=== PATIENT | male | born 1955 | race Two or more races ===

== ENCOUNTER → 2017-08-06 | Outpatient (CLI) | payer OTHER | LOC: FIMAGING 13:36 | PROVIDERS: ATTEND Orthopaedic Surgery | DX: Z01.818 Encounter for other preprocedural examination (principal); M17.11 Unilateral primary osteoarthritis, right knee ==

== ENCOUNTER 2017-08-14 10:52 | Observation (INO) | payer OTHER ==
--- NOTE | 2017-08-14 07:03 | PDHPUP ---
History & Physical Update H&P update statement: This history and physical update is based on an assessment of the patient which was completed after admission or registration (within 24 hours), but prior to the surgery/procedure. H&P update: H&P reviewed & patient examined, no change in patient's condition since H&P completed
[~2017-08-14 10:52] MED LIST: ROPIVACAINE 0.2% 80 MG, EPINEPHrine 0.2 MG, KETOROLAC TROMETHAMINE 30 MG in SYRINGE 0 ML IU ONE; TRANEXAMIC ACID 3,000 MG in NS (SYRINGE) 50 ML IRR ONE; VANCOMYCIN 1 GM VIAL ONE
[2017-08-14] MEDS ORDERED: ACETAMINOPHEN 325 MG TAB PO ONE (11:52)
[2017-08-14] MEDS ORDERED: DEXAMETHASONE 4 MG/ML VIAL IVP ONE (11:52)
[2017-08-14] MEDS ORDERED: FAMOTIDINE 20 MG TAB PO ONE (11:52)
[2017-08-14] MEDS ORDERED: ceFAZolin 2 GM/DEXTROSE 100 ML IV ONE (11:52)
[2017-08-14] MEDS ORDERED: LIDOCAINE 1% 2 ML INJ ID PRN (11:53)
[2017-08-14] MEDS ORDERED: LR 1,000 ML IV ONE (11:55)
--- NOTE | 2017-08-14 13:04 | PDANEPAE ---
ANE Past Medical History - Cardiovascular History Hx Hypertension: Yes Hx Arrhythmias: No Hx Chest Pain: No Hx Coronary Artery / Peripheral Vascular Disease: No Hx CHF / Valvular Disease: No Hx Palpitations: No - Pulmonary History Hx COPD: No Hx Asthma/Reactive Airway Disease: No Hx Recent Upper Respiratory Infection: Yes Hx Oxygen in Use at Home: No Hx Sleep Apnea: Yes Sleep Apnea Screening Result - Last Documented: Positive Pulmonary History Comment: LEV USES C-PAP,INSTRUCTED TO BRING DOS. URI 02/2017 - Neurologic History Hx Cerebrovascular Accident: No Hx Seizures: No Hx Dementia: No - Endocrine History Hx Diabetes: No - Renal History Hx Renal Disorders: Yes Renal History Comment: BPH - Liver History Hx Hepatic Disorders: No - Neurological & Psychiatric Hx Hx Neurological and Psychiatric Disorders: Yes Neurological / Psychiatric History Comment: ANXIETY. PANIC DISORDER - Cancer History Hx Cancer: No - Congenital Disorder History Hx Congenital Disorders: No - GI History Hx Gastrointestinal Disorders: No - Other Health History Other Health History: OSTEOARTHRITIS. SIGNS OF GLAUCOMA. CHRONIC SINUSITUS. ED. INSOMNIA - Chronic Pain History Chronic Pain: Yes (RT KNEE) - Surgical History Prior Surgeries: LT TOTAL KNEE 06/2015. APPY. TONSILLECTOMY. LORRAINE ING HERNIA. VENTRAL HERNIA. VASECTOMY REVERSAL ANE Review of Systems Review of Systems: - Exercise capacity METS (RN): 4 METS ANE Patient History - Allergies Allergies/Adverse Reactions: codeine Allergy (Verified 07/14/17 11:21) INCREASED ANXIETY lisinopril Allergy (Verified 07/14/17 11:21) DEVELOPS COUGH - Home Medications Home Medications: Ambien HS 07/14/17 [Last Taken 08/13/17 21:00] Fluocinolone 0.01% PRN 07/14/17 [Last Taken 08/07/17] Fluticasone Nasal PRN 07/14/17 [Last Taken 08/07/17] Herbals/Supplements -Info Only DAILY 07/14/17 [Last Taken 08/07/17] Losartan Potassium HS 07/14/17 [Last Taken 08/13/17 21:00] - NPO status NPO Since - Liquids (Date): 08/14/17 NPO Since - Liquids (Time): 09:30 NPO Since - Solids (Date): 08/13/17 NPO Since - Solids (Time): 21:45 - Smoking Hx Smoking Status: Former smoker ANE Labs/Vital Signs - Vital Signs Blood Pressure: 138/96 Heart Rate: 71 Respiratory Rate: 16 O2 Sat (%): 96 Height: 180.34 cm Weight: 108.862 kg ANE Physical Exam - Airway Neck exam: FROM Mallampati Score: Class 2 Mouth exam: normal dental/mouth exam - Pulmonary Pulmonary: no respiratory distress - Cardiovascular Cardiovascular: regular rate and rhythym - ASA Status ASA Status: III ANE Anesthesia Plan Anesthesia Plan: general endotracheal anesthesia, spinal Regional Anesthesia: adductor canal FNB
[2017-08-14] MEDS ORDERED: MIDAZOLAM 2 MG/2 ML VIAL ONE (13:14)
[2017-08-14] MEDS ORDERED: fentaNYL 100 MCG/2 ML INJ ONE (13:14)
[2017-08-14] MEDS ORDERED: PROPOFOL/EMULSION 500 MG/50 ML BOTTLE IV ONE (13:15)
[2017-08-14] MEDS ORDERED: fentaNYL 250 MCG/5 ML INJ ONE (13:26)
[2017-08-14] MEDS ORDERED: ROCURONIUM 50 MG/5 ML VIAL ONE (13:26)
[2017-08-14] MEDS ORDERED: METOCLOPRAMIDE 10 MG/2 ML VIAL ONE (13:39)
[2017-08-14] MEDS ORDERED: DEXAMETHASONE 4 MG/ML VIAL ONE ×2 (13:39)
[2017-08-14] MEDS ORDERED: ONDANSETRON 4 MG/2 ML VIAL IVP PRN ×2 (13:43→15:00)
[2017-08-14] MEDS ORDERED: ONDANSETRON DISINTEGRATING 4 MG TAB PO PRN (13:43)
[2017-08-14] MEDS ORDERED: POLYETHYLENE GLYCOL 3350 17 GM PKT PO PRN (13:43)
[2017-08-14] MEDS ORDERED: DIPHENOXYLATE/ATROPINE LOMOTIL 1 TAB PO PRN (13:43)
[2017-08-14] MEDS ORDERED: PROMETHAZINE HCL 25 MG/ML INJ IVP PRN (13:43)
[2017-08-14] MEDS ORDERED: diphenhydrAMINE 25 MG CAP PO PRN (13:43)
[2017-08-14] MEDS ORDERED: BISACODYL 10 MG SUPP PR PRN (13:43)
[2017-08-14] MEDS ORDERED: METOCLOPRAMIDE 10 MG/2 ML VIAL IVP PRN (13:43)
[2017-08-14] MEDS ORDERED: TEMAZEPAM 15 MG CAP PO PRN (13:43)
[2017-08-14] MEDS ORDERED: PROMETHAZINE HCL 25 MG SUPPR PR PRN (13:43)
[2017-08-14] MEDS ORDERED: CYCLOBENZAPRINE 10 MG TAB PO PRN (13:43)
[2017-08-14] MEDS ORDERED: LACTULOSE 20 GM/30 ML UDCUP PO PRN (13:43)
[2017-08-14] MEDS ORDERED: MAGNESIUM HYDROXIDE 30 ML UDCUP PO PRN (13:43)
[2017-08-14] MEDS ORDERED: LR 1,000 ML IV SCH (14:00)
[2017-08-14] MEDS ORDERED: SUGAMMADEX SODIUM 200 MG/2 ML VIAL IVP ONE (14:15)
--- NOTE | 2017-08-14 14:46 | POSTOPPROG ---
Post Op Note Date of Operation: 08/14/17 Surgeon: Candie Cabral Spindle Plumber: augusto cabral Anesthesiologist: dr. tineo Anesthesia: Spinal Pre-op Diagnosis: right knee OA Post-op Diagnosis: same Indication: right knee pain due to OA that failed conservative measure Procedure: R medial partial knee arthroplasty robot assisted Findings: severe medial knee OA Inf/Abcess present in the surg proc area at time of surgery?: No EBL: 50-100
[2017-08-14] MEDS ORDERED: NALOXONE HCL 0.4 MG/ML INJ IVP PRN ×2 (15:00)
[2017-08-14] MEDS ORDERED: fentaNYL 100 MCG/2 ML INJ IVP PRN (15:00)
[2017-08-14] MEDS ORDERED: ALBUTEROL 3 ML DEYVIAL IH PRN (15:00)
--- NOTE | 2017-08-14 15:00 | POSTANESTH ---
Post Anesthetic Evaluation Cardiovascular Status: Similar to Pre-Op Cond Respiratory Status: Similar to Pre-op Cond. Level of Consciousness/Mental Status: Mildly Sleepy, Arousable Pain Control: Adequate, Prn Tx Ordered Nausea/Vomiting Control: Adequate, Prn Tx Ordered Complications Possibly Related to Anesthesia: None Noted
[2017-08-14] MEDS ORDERED: oxyCODONE IR 5 MG TAB ONE (15:12)
[2017-08-14] MEDS: oxyCODONE IR 5 MG TAB PO PRN ×3 (15:12→20:37)
[2017-08-14] MEDS ORDERED: WARFARIN SODIUM 5 MG TAB PO SCH (16:15)
[2017-08-14] MEDS: ACETAMINOPHEN 325 MG TAB PO SCH ×2 (16:50→23:30)
[2017-08-14] MEDS: FAMOTIDINE 20 MG TAB PO SCH (20:37)
[2017-08-14] MEDS: ceFAZolin 2 GM/DEXTROSE 100 ML IV SCH (20:37)
[2017-08-14] MEDS: SENNOSIDES/DOCUSATE SODIUM TAB PO SCH (20:37)
--- NOTE | 2017-08-15 00:59 | GOP ---
[f rep st] OPERATIVE REPORT DATE OF OPERATION: 08/14/2017 SURGEON: Franky Echavarria MD SCHOOL JANITOR: TONI Altamirano ANESTHESIA: General. PREOPERATIVE DIAGNOSIS: Right knee osteoarthritis. POSTOPERATIVE DIAGNOSIS: Right knee osteoarthritis. PROCEDURE PERFORMED: KAYLEIGH uni-knee, right medial compartment partial knee replacement with computer navigation and robotic assist. FINDINGS: ESTIMATED BLOOD LOSS: 30 cc. INDICATIONS: This is a 62-year old male with progressive pain of the right knee unresponsive to cons ervative care. Risks and benefits of surgical intervention were explained in detail. DESCRIPTION OF PROCEDURE: The patient was brought to the operating room and placed on the table in s upine position. Spinal anesthesia was induced without difficulty. A pneumatic tourniquet was applied about the right proximal thigh and the leg was prepped and draped in sterile fashion. Attention was t urned first to the distal aspect of the right femur. At 3 cm proximal to the lateral rise of the femu r, 2 percutaneous half pins were placed for fixation of the femoral array. In a similar fashion, 2 pi ns were placed anterolateral on the tibia for fixation of the tibial array. External land marking and registration of the hip center was performed without difficulty. After exsanguination by elevation, the tourniquet was inflated. Incision was made from the tibial tuberosity to the superior pole of the patella. Dissection was romero ied out through the subcutaneous tissue to the deep fascia using Bovie electrocautery for hemostasis. Medial parapatellar arthrotomy was carried out to the superior pole of the patella. The medial colla teral ligament was elevated and the infrapatellar fat pad was resected. Internal femoral and tibial r egistration was carried out without difficulty and the femoral and tibial checkpoints were placed and verified for accuracy. Attention was turned to the femur. The foot print for the size 5 femoral component was cut with the 6 mm bur using the Flomio robotic system and verified for accuracy against the CT based plan. The hole wa s cut for the femoral post. In a similar fashion, the 6 mm bur was used to cut the foot print for the size 5 tibial component using the Flomio system and verified for accuracy against the CT based plan. Attention was turned to the posterior aspect of the knee and remnants of the medial meniscus were exc ised. The posterior capsule was injected with ropivacaine, epinephrine and Toradol. Trial reduction w as carried out and there was excellent range of motion, alignment and stability using the size 5 femo ral component and the size 5 tibial component, 5 x 8 mm polyethylene. All trials were then removed. The joint was thoroughly irrigated and carefully dried. One package of cement and 1 gram of vancomycin were mixed in the vacuum mixer and placed on the fixation surfaces of all components. The components were implanted and all excess cement was thoroughly removed. Implant placement was verified against the CT view plan and found to be excellent. The tourniquet was deflated and all bleeders were coagulated. The wound was thoroughly irrigated and closed using interrupted sutures of 2-0 Vicryl for the joint capsule. The subcu was closed with 3-0 V icryl and the skin with 4-0 Monocryl. Dermabond and Steri-Strips were applied, followed by a compress quincy dressing. The patient was then moved from the operating room to the recovery room in good conditi on, having tolerated the procedure well. CASE CLASSIFICATION: Clean. /[id number]/MODL
[2017-08-15] MEDS: oxyCODONE IR 5 MG TAB PO PRN (04:44)
[2017-08-15 05:08] LABS: PROTIME(PATIENT) 13.4 SEC (12.0-15.0)
[2017-08-15] MEDS: ACETAMINOPHEN 325 MG TAB PO SCH ×2 (05:51→11:27)
[2017-08-15] MEDS: ceFAZolin 2 GM/DEXTROSE 100 ML IV SCH (05:51)
[2017-08-15] MEDS ORDERED: ENOXAPARIN 40 MG/0.4 ML SYR SC SCH (09:00)
[2017-08-15 09:01] VITALS: BP 138/86
[2017-08-15] MEDS: SENNOSIDES/DOCUSATE SODIUM TAB PO SCH (09:18)
[2017-08-15] MEDS: FAMOTIDINE 20 MG TAB PO SCH (09:18)
--- NOTE | 2017-08-15 11:10 | SOAPPROG ---
[facility] Progress Note Assessment/Plan: Assessment: Patient is doing well POD 1 s/p R PKA pain management: pain is well controlled on oral pain meds VTE ppx: recommend coumadin and lovenox D/c planning: d/c to home today pending release from PT Plan: 08/15/17 11:09 Subjective: patient is doing well, denies SOB, chest pain and N/V. Objective: Vital Signs Temp Pulse Resp BP Pulse Ox 36.8 C 82 16 138/86 H 96 08/15/17 07:38 08/15/17 08:00 08/15/17 07:38 08/15/17 08:00 08/15/17 08:00 Laboratory Results 08/15/17 04:35 08/14/17 08/15/17 08/16/17 05:59 05:59 05:59 Intake Total 1120 Output Total 780 Balance 340 PT 13.4 SEC (12.0-15.0) 08/15/17 04:35 INR 1.00 (0.83-1.16) 08/15/17 04:35 RLE: incision dressing is clean and dry, NVI, +pf/df ICD10 Worksheet Patient Problems: Problems Problem Status Onset Primary localized osteoarthritis of right knee Acute
[2017-08-15] MEDS ORDERED: LOSARTAN POTASSIUM 50 MG TAB PO SCH (21:00)
--- NOTE | 2017-08-27 13:53 | GDS ---
[f rep st] DISCHARGE SUMMARY ADMISSION DIAGNOSIS: Right knee osteoarthritis. DISCHARGE DIAGNOSIS: Right knee osteoarthritis. PROCEDURE: Right partial knee arthroplasty, medial compartment, robot assisted with computer naviga tion. VTE PROPHYLAXIS: Recommend Coumadin and Lovenox. BRIEF DESCRIPTION OF HOSPITAL STAY: Patient was admitted for an elective joint arthroplasty. The pa tient tolerated the procedure well and has passed physical therapy. The patient was given appropriat e antibiotic prophylaxis and venous thromboembolism prophylaxis. The patient's pain was well control led on oral pain medication. Patient was holding down food, and had urinated. Decision was made to discharge the patient. The patient was given post-operative prescriptions pre-operatively. PLAN: Please follow up as scheduled at Dr. Echavarria office September 02 at 9:45 a.m. /[id number]/MODL
== END 2017-08-15 11:51 | disposition home or self-care (01) ==
LOC: F3N 10:52
PROVIDERS: ADMIT Orthopaedic Surgery; ATTEND Orthopaedic Surgery
PROC: 8E0Y0CZ Robotic Assisted Procedure of Lower Extremity, Open Approach (ICD-10-PCS; principal; 2017-08-14 13:15)
PROC: 0SUC0JZ Supplement Right Knee Joint with Synthetic Substitute, Open Approach (ICD-10-PCS; principal; 2017-08-14 13:15)
DX: M17.11 Unilateral primary osteoarthritis, right knee (principal); G47.33 Obstructive sleep apnea (adult) (pediatric); F41.0 Panic disorder [episodic paroxysmal anxiety]; Z96.652 Presence of left artificial knee joint; I10 Essential (primary) hypertension
CPT/HCPCS: 27446; 73560; 97116; 97161; G0378; C1713; J0171; J0690; J1100; J1650; J1885; J2250; J2270; J2704; J2765; J2795; J3010; J3370